=== PATIENT | male | born 1960 | race Caucasian/White ===

== ENCOUNTER 2016-07-16 09:53 | Emergency (ER) | payer OTHER ==
[~2016-07-16] VITALS: Ht 185.4 cm; Wt 86.1 kg
[2016-07-16 09:56] VITALS: BP 117/89; PULSE 96; RESP 20; TEMP 98.2; O2SAT 96
[2016-07-16] MEDS ORDERED: LISI-519 PO (10:08)
[2016-07-16] MEDS ORDERED: ATOR20TA15 PO (10:08)
[2016-07-16] MEDS ORDERED: APIX5TAB PO (10:08)
[2016-07-16] MEDS ORDERED: ZITHTAB PO (10:23)
[2016-07-16] MEDS ORDERED: CIPRHC10A LEFT EAR (10:23)
--- NOTE | 2016-07-16 10:23 | PD ---
HPI Chief Complaint: ENT Complaint Time Seen by Provider: 10:05 Travel History International Travel<30 days: No Contact w/Intl Traveler<30days: No Traveled to known affect area: No History of Present Illness HPI The patient is a 55-year-old male who presents emergency department for left ear pain. The patient is a 2 to three-day history of left ear pain with mild swelling of the anterior aspect left ear. The patient has decreased hearing out of the left ear associated with pain. The pain does radiate to the anterior aspect left ear into the angle of the mandible. The patient denies any tooth sensitivity or current dental difficulties. He denies any fever, chills, or sweats. He denies any trauma to the affected ear. Symptoms are mild to moderate, there are no alleviating or exacerbating factors. PFSH Past Medical History Hx Anticoagulant Therapy: Yes Arthritis: Yes Asthma: No Autoimmune Disease: No Blood Disorders: No Heart Rhythm Problems: Yes Cancer: No Cardiovascular Problems: Yes High Cholesterol: Yes Chemotherapy: No Chest Pain: No Congestive Heart Failure: No COPD: No Cerebrovascular Accident: Yes (2013) Diabetes: No Deep Vein Thrombosis: Yes Endocrine: No Gastrointestinal Disorders: Yes (ESOPHAGEAL DILATION ) GERD: Yes Glaucoma: No Genitourinary: No Hepatitis: No Hiatal Hernia: No Hypertension: Yes (HX - NOT ON MEDS) Immune Disorder: No Musculoskeletal: Yes Neurologic: Yes Psychiatric: No Reproductive: No Respiratory: No Myocardial Infarction: No Radiation Therapy: No Sleep Apnea: No Thyroid Disease: No Past Surgical History AICD: No Arteriovenous Shunt: No Cardiac Surgery: Yes Insulin Pump: No Joint Replacement: No Oral Surgery: Yes Pacemaker: No Tonsillectomy: Yes Other Surgery: Yes (FEM POP BYPASSES IN 2005/2006/2007(R LEG AND L LEG)) Social History Alcohol Use: No Tobacco Use: Yes (3 CIGS A DAY) Substance Use: No (FORMER) Allergies-Medications (Allergen,Severity, Reaction): Coded Allergies: Penicillin (Verified Allergy, Unknown, rash, 07/16/16) Reported Meds & Prescriptions Reported Meds & Active Scripts Active No Active Prescriptions or Reported Medications Review of Systems Except as stated in HPI: all other systems reviewed are Neg General / Constitutional: No: Fever HENT: Positive: Earache, No: Sore Throat, Congestion, Neck Pain, Ear Discharge Skin: No Rash Physical Exam Narrative GENERAL: Awake, alert, pleasant 55-year-old male who appears his stated age and is in no acute respiratory distress. SKIN: Focused skin assessment warm/dry. HEAD: Atraumatic. Normocephalic. EYES: Pupils equal and round. No scleral icterus. No injection or drainage. ENT: Oropharynx reveals no erythema or exudate. No tenderness upon palpation of the lower dentition. Right team is translucent and right EAC is clear. The left tympanic membrane is unable to be visualized secondary to significant edema and drainage in the left EAC. Left tragal tenderness. Mild tenderness and edema noted just anterior to the left ear. NECK: Trachea midline. No JVD. Well-healed scar and anterior aspect of the neck from previous carotid endarterectomy.not palpable. MUSCULOSKELETAL: No obvious deformities. No clubbing. No cyanosis. No edema. Well-healed scar left upper extremity from previous vein harvesting. NEUROLOGICAL: Awake and alert. No obvious cranial nerve deficits. Motor grossly within normal limits. Normal speech. PSYCHIATRIC: Appropriate mood and affect; insight and judgment normal. Data Data Last Documented VS Vital Signs Date Time Temp Pulse Resp B/P Pulse Ox O2 Delivery O2 Flow Rate FiO2 07/16/16 09:56 98.2 96 20 117/89 96 MDM Medical Decision Making Medical Screen Exam Complete: Yes Emergency Medical Condition: Yes Medical Record Reviewed: Yes Differential Diagnosis Differential diagnosis includes otitis media, otitis externa, serous otitis, eustachian tube dysfunction, parotitis, pericoronitis, dental infection. Narrative Course The patient appears to have a significant otitis externa, I do not believe it is parotitis with the edema and drainage in the left EAC. Dentition is unremarkable. The patient will be placed on Zithromax and eardrops. The patient is advised to take Tylenol as needed for pain and follow-up with his primary physician. Return if symptoms worsen or progress. Diagnosis Primary Impression: Left otitis externa Qualified Code: H60.502 - Acute otitis externa of left ear, unspecified type Patient Instructions: General Instructions Additional Instructions: Medications as directed. Follow-up with your primary physician. Return if symptoms worsen or progress. Med/Other Pt SpecificInfo: Prescription(s) given Scripts Ciprofloxacin-Hydrocortisone Otic Drops (Cipro Hc Otic Drops)0.2-1% Susp3 Drop LEFT EAR BID 7 Days Ref 0 Prov:Marmolejo,Sidney Z. MD 07/16/16 Azithromycin (Zithromax Z-Jose)250 Mg [id number] Mg PO DIRECTED #1 DSPK Ref 0 500 MG (2 tabs) day 1, then 1 tab days 2-5. Prov:Sidney Marmolejo MD 07/16/16 Disposition: 01 DISCHARGE HOME Condition: Stable Sidney Marmolejo MD July 16, 2016 10:23
== END 2016-07-16 10:28 | disposition home or self-care (01) ==
LOC: PHEFT 09:53
DX: H60.502 Unspecified acute noninfective otitis externa, left ear (principal); K21.9 Gastro-esophageal reflux disease without esophagitis; E78.00 Pure hypercholesterolemia, unspecified; M19.90 Unspecified osteoarthritis, unspecified site; F17.210 Nicotine dependence, cigarettes, uncomplicated; Z88.0 Allergy status to penicillin; Z86.718 Personal history of other venous thrombosis and embolism; Z86.73 Personal history of transient ischemic attack (TIA), and cerebral infarction without residual deficits
CPT/HCPCS: 99283